=== PATIENT | female | born 1990 | race Caucasian/White ===

== ENCOUNTER 2019-12-02 16:41 | Emergency (ER) | payer BC ==
--- OUTSIDE RECORDS SUMMARY | 2019-12-02 16:52 | XMS REPORT | Continuity of Care Document ---
:1990 External Reference #:[id number] Author Name Dee Galan NP Address [address] [place] [address] Care Team Providers Name Role Phone Agnieszka Olivo M.D. - Family Medicine Care Team Information [place] Unavailable Problems Description No Information Available Social History Type Date Description Comments Sex Unknown Tobacco Use Start: Unknown Nonsmoker Exercise Type/Frequency Exercises sporadically Allergies, Adverse Reactions, Alerts Description No Known Drug Allergies Medications Active Medications SIG Qnty Indications Ordering Date Provider Retin-A Micro Pump Apply thin layer 50gm L70.0 Dee Henriquez 10/03/2019 0.08% to face every [place], RADIO PROGRAM DIRECTOR Gel other day Tizanidine HCL take 1-2 by mouth 30tabs Dee Henriquez 09/18/2019 2mg up to 3 times per Adama [employer]IO PROGRAM DIRECTOR Tablets day as needed for pain and muscle spasm Sulfacetamide Sodium apply to affected Unknown (Acne) areas twice daily 10% Lotion Immunizations CPT Code Status Date Vaccine Lot # [id number] Given 08/23/2019 Tetanus And Diptheria Adult Preservative Free [id number] >[id number] Given 08/23/2019 Influenza Virus Vaccine, Recombinant Dna, [id number] Hemagglutnin Protein On Vital Signs Date Vital Result Comment 10/03/2019 6:05pm BP Systolic 112 mmHg BP Diastolic 78 mmHg Heart Rate 78 /min Body Temperature 97.9 F Respiratory Rate 12 /min Height 67.25 inches 5'7.25" Weight 150.00 lb BMI (Body Mass Index) 23.3 kg/m2 08/28/2019 5:48pm BP Systolic 126 mmHg BP Diastolic 88 mmHg Heart Rate 84 /min Body Temperature 98.2 F Height 67.25 inches 5'7.25" Results Test Date Facility Test Result H/L Range Note Urine (Fma) 08/28/2019 [facility] Medicine SP Grav 1.010 (607)- - Urine, (Fma/CMC/CTX) negative GC/Chlamydia Amplified 08/28/2019 [facility] [place] Chlamydia trachomatis Negative Negative Rna Cindi Neisseria gonorrhoeae (GC) Cindi Negative Negative Laboratory test finding 08/23/2019 [facility] [place] Cytology Thinprep SEE RESULT BELOW 1 w/rfx([facility] [place]) 1 SEE RESULT BELOW Name: DANIELAGEOFFREY S : [address]: Mary Duckworth RADIO PROGRAM DIRECTOR Acct: [id number] Unit: [id number] AGE: 28 Location: [facility] Re08/23/19 SEX: F Status: REG REF SPEC: [id number] HARPREET: 08/23/19-[address] [facility] [address]: Mary Duckworth RADIO PROGRAM DIRECTOR REQ: [id number] RECD: 08/26/19 STATUS: SOUT _ ORDERED: TP IMAGE ANALYS, HPV 16/18 GENE COMMENTS: [id number] FINAL DIAGNOSIS Negative for Intraepithelial lesion or Malignancy SPECIMEN(S) RECEIVED A. Ectocervical/Endocervical CYTOLOGY ADEQUACY Specimen Adequacy: Satisfactory of evaluation Transformation zone component not identified CYTOLOGY PATIENT INFORMATION Patient Information: HPV: Thin Layer Pap Test w/reflex to high risk HPV RNA testing when ASCUS HPV 16/18 Genotype Reflex Actual Specimen Date: 08/26/19 LMP If Unknown: Last Menstrual Period Not Given. Spec Date if unknown: 2017 ?: N Post Menopausal?: N Hysterectomy?: N Previous Abnormal Pap Smears?:N Signed by and Reported on: CYDNEY Ordoñez(ASCP) 2052 This Pap test was evaluated with the assistance of the [employer] Test Imaging System. Due to cytologic findings at the sociology professor microscope, comprehensive manual rescreening by a Gear Straightener may be required. The Pap Smear is a screening test designed to aid in the detection of premalignant and malignant conditions of the uterine cervix. It is not a diagnostic procedure and should not be used as the sole means of detecting cervical cancer. Both false- positive and false- negative reports do occur. Depending on your risk status, a Pap smear should be obtained and evaluated every 1-3 years. END OF REPORT DEPARTMENT OF PATHOLOGY, [address] [place] [address] Mika Mccartney M.D. Director [facility] # [id number] Procedures Date Code Description Status 08/28/2019 62321 Insertion of intrauterine device (IUD) Completed 08/23/2019 37896 Brief Emotional/Behav Assessment W/ Scoring Doc Per Completed Standard Inst Medical Devices Description No Information Available Encounters Type Date Location Provider Dx Diagnosis Office Visit 08/28/2019 Main Office Dee Henriquez Z30.430 Encounter for 6:00p NOLBERTO Galan insertion of intrauterine contraceptive device Z32.02 Encounter for test, result negative Office Visit 08/23/2019 2:30p Main Office Mary Z30.09 Encounter for KATIE Marshall general coun and advice on contraception N94.6 Dysmenorrhea, unspecified F34.1 Dysthymic disorder Z01.419 Encntr for manager parking exam (general) (routine) w/o abn findings Z23 Encounter for immunization Assessments Date Code Description Provider 10/03/2019 L70.0 Acne vulgaris Dee Galan NP 10/03/2019 N76.0 Acute vaginitis Dee Galan NP 10/03/2019 F34.1 Dysthymic disorder Dee Galan NP 08/29/2019 Z30.430 Encounter for insertion of intrauterine Dee Galan NP contraceptive device 08/28/2019 Z30.430 Encounter for insertion of intrauterine Dee Galan , NOLBERTO contraceptive device 08/28/2019 Z32.02 Encounter for test, result Dee Galan NP negative 08/23/2019 Z30.09 Encounter for other general counseling and KATIE Dumont advice on contraception 08/23/2019 N94.6 Dysmenorrhea, unspecified KATIE Dumont 08/23/2019 F34.1 Dysthymic disorder KATIE Dumont 08/23/2019 Z01.419 Encounter for gynecological examination KATIE Dumont (general) (routine) without abnormal findings 08/23/2019 Z23 Encounter for immunization KATIE Dumont Plan of Treatment 10/03/2019 - Dee Galan NPL70.0 Acne vulgarisNew Medication:Retin-A Micro Pump 0.08 % - Apply thin layer to face every other dayComments:Try this; if no better, may want to test your testosterone, TSH, and other hormones.N76.0 Acute vaginitisNew Labs:Nuswab VG, Ordered: 10/03/19Comments:Will treat based on labF34.1 Dysthymic disorderComments:Continue to work on sleep, exercise, diet , and human connection. If symptoms persist despite treating the acne we can consider an antidepressant.AllComments:1. Patient has been queried about patient's goals/preferences and functional/lifestyle goals at relevant visits. If relevant, describe: Has been discussed, noted above2. Treatment goals as explainedto the patient: see above3. Are there barriers to meeting treatment goals? Yes If Yes, please describe: Barriers include possible insurance limits, disease process, and difficulty with lifestyle changes4. Self- Management goals as described to the patient: Yes, see above As always, we strongly encourage a healthy diet and making physical activity a part of your every day life. If you have questions about how or where to start, please contact the office. Functional Status Description No Information Available Mental Status Description No Information Available Referrals Description No Information Available
[2019-12-02] MEDS ORDERED: Ondansetron INJ* 2 MG/ML VIAL IV ONE (17:00)
[2019-12-02] MEDS ORDERED: NS 0.9% 1000 ML** 1,000 ML IV ONE (17:00)
--- NOTE | 2019-12-02 17:04 | ED ---
Complex/Multi-Sys Presentation - HPI Summary HPI Summary: 29 year old female presents with nausea for the past couple days. She states that on Monday she started becoming nauseous. She states that she has been tired and sleeping all weekend. She states that on she started on Lexapro and she also gave donation of blood. She she feels very weak. She admits to some chest tightness and shortness breath. She denies any recent travel. She is on the Mirena. She denies any vomiting or diarrhea. She has not had an appetite. She admits to some dysuria. Denies any flank pain. She admits to headache. No neck stiffness. No sinus congestion. She told the nurse that she is more depressed than normal and she is suicidal. - History Of Current Complaint Chief Complaint: EDGeneral Time Seen by Provider: 12/02/19 16:51 - Allergies/Home Medications Allergies/Adverse Reactions: Allergies Allergy/AdvReac Type Severity Reaction Status Date / Time No Known Allergies Allergy Verified 12/02/19 16:46 Home Medications: Home Medications Sertraline* [Zoloft*] 50 mg PO DAILY 12/02/19 [History Confirmed 12/02/19] Vilazodone (NF) [Viibryd (NF)] 10 mg PO DAILY 12/02/19 [History Confirmed ] PMH/Surg Hx/FS Hx/Imm Hx Endocrine/Hematology History: Denies: Hx Anticoagulant Therapy Respiratory History: Denies: Hx Asthma Infectious Disease History: No Infectious Disease History: Denies: Traveled Outside the [place] in Last 30 Days - Family History Known Family History: Positive: Non-Contributory - Social History Substance Use Type: Reports: None Smoking Status (MU): Never Smoked Tobacco Review of Systems Positive: Fever, Fatigue Positive: Chest Pain Positive: Shortness Of Breath. Negative: Cough Positive: Vomiting, Nausea Positive: Myalgia Positive: Depressed All Other Systems Reviewed And Are Negative: Yes Physical Exam Triage Information Reviewed: Yes Vital Signs On Initial Exam: Initial Vitals Temp Pulse Resp BP Pulse Ox 98.9 F 89 16 132/94 100 12/02/19 16:43 12/02/19 16:43 12/02/19 16:43 12/02/19 16:43 12/02/19 16:43 Vital Signs Reviewed: Yes Appearance: Positive: Well-Appearing Skin: Positive: Warm, Dry Head/Face: Positive: Normal Head/Face Inspection Eyes: Positive: Normal, EOMI, MITRA, Conjunctiva Clear ENT: Positive: Normal ENT inspection, Pharynx normal, TMs normal Respiratory/Lung Sounds: Positive: Clear to Auscultation, Breath Sounds Present Cardiovascular: Positive: Normal, RRR Abdomen Description: Positive: Nontender, Soft. Negative: CVA Tenderness (R), CVA Tenderness (L) Bowel Sounds: Positive: Present Musculoskeletal: Positive: Normal Neurological: Positive: Normal Psychiatric: Positive: Depressed Procedures - Sedation Patient Received Moderate/Deep Sedation with Procedure: No Diagnostics - Vital Signs Vital Signs Temp Pulse Resp BP Pulse Ox 12/02/19 16:43 98.9 F 89 16 132/94 100 - Laboratory Result Diagrams: 12/02/19 17:21 12/02/19 17:20 Lab Statement: Any lab studies that have been ordered have been reviewed, and results considered in the medical decision making process. - Radiology chest Radiology Interpretation Completed By: ED Physician Summary of Radiographic Findings: no active disease - EKG No standard instances Cardiac Rate: NL EKG Rhythm: Sinus Rhythm Summary of EKG Findings: sinus rhythm Re-Evaluation - Re-Evaluation First Eval Re-Evaluation Time: 18:36 Change: Improved Comment: feeling better, less nauseous Complex Multi-Symp Course/Dx Course Of Treatment: 29 year old female presents with nausea for the past couple days. She states that on Monday she started becoming nauseous. She states that she has been tired and sleeping all weekend. She states that on she started on Lexapro and she also gave donation of blood. She she feels very weak. She admits to some chest tightness and shortness breath. She is on the Mirena. She denies any vomiting or diarrhea. She has not had an appetite. She admits to some dysuria. Denies any flank pain. She admits to headache. No neck stiffness. No sinus congestion. She told the nurse that she is more depressed than normal and she is suicidal. On exam pharynx normal. Negative nuchal rigidity. Lungs auscultation. Abdomen soft nontender. wbc normal. hemoglobin 11.7. crp normal. urine no infection. chest xray normal. gave fluids and zofran and feeling better. flu is negative. discussed likely viral syndrome. patient is medical clear for . patient will be signed out pending [facility] to dr Moncada - Diagnoses Differential Diagnoses/HQI/PQRI: Urinary Tract Infection, Other - influenza, pneumonia, depression Provider Diagnoses: Nausea, Viral syndrome, Mood disorder Discharge ED - Sign-Out/Discharge Documenting (check all that apply): Sign-Out Patient Signing out patient TO: John Moncada - Discharge Plan Condition: Stable Referrals: Agnieszka Olivo MD [Primary Care Provider] - - Billing Disposition and Condition Condition: STABLE
[2019-12-02 17:39] LABS: Urine Appearance Clear; Urine Bilirubin Negative (Negative); Urine Blood 3+ (Negative); Urine Color Straw; Urine Glucose Negative (Negative); Urine Ketones Negative (Negative); Urine Nitrite Negative (Negative); Urine Protein Negative (Negative); Urine Specific Gravity 1.004 (1.010-1.030); Urine Urobilinogen Negative (Negative)
[2019-12-02 17:40] LABS: ABS Eosinophils 0.1 10^3/ul (0-0.6); ABS Lymphocytes 2.1 10^3/ul (1.0-4.8); ABS Monocytes 0.6 10^3/ul (0-0.8); ABS Neutrophils 1.9 10^3/ul (1.5-7.7); Eosinophil % 1.6 %; Hematocrit 34 % (35-47); Hemoglobin 11.7 g/dL (12.0-16.0); Lymphocyte % 43.8 %; Mean Corpuscular HGB Conc 34 g/dL (31-36); Mean Corpuscular Hemoglobin 28 pg (27-31); Mean Corpuscular Volume 83 fL (80-97); Mean Platelet Volume 7.8 fL (7.4-10.4); Nucleated Red Blood Cells % 0.1; Platelet Count 276 10^3/uL (150-450); Red Blood Count 4.14 10^6 /uL (3.70-4.87); Red Cell Distribution Width 14 % (10-15); White Blood Count 4.7 10^3/uL (3.5-10.8)
[2019-12-02 17:41] LABS: Urine Bacteria Absent (Absent); Urine Red Blood Cell 1+(3-5/hpf) (Absent); Urine Squamous Epithelial Cell Present (Absent); Urine White Blood Cell Absent (Absent)
[2019-12-02 17:58] LABS: Urine Benzodiazepine Screen None Detected (None Detect); Urine Opiates Screen None Detected (None Detect)
[2019-12-02 17:59] LABS: ALT 19 U/L (7-52); AST 22 U/L (13-39); Albumin 4.7 g/dL (3.2-5.2); Albumin/Globulin Ratio 1.8 (1-3); Alkaline Phosphatase 45 U/L (34-104); Anion Gap 8 mmol/L (2-11); BUN/Creatinine Ratio 11.8 (8-20); Blood Urea Nitrogen 8 mg/dL (6-24); C Reactive Protein < 1.00 mg/L (<8.01); CO2 Carbon Dioxide 25 mmol/L (22-32); Calcium 9.4 mg/dL (8.6-10.3); Chloride 103 mmol/L (101-111); EGFR African American 125.6 (>60); EGFR Non-African American 103.8 (>60); Globulin 2.6 g/dL (2-4); Glucose 89 mg/dL (70-100); Magnesium 2.1 mg/dL (1.9-2.7); Potassium 3.4 mmol/L (3.5-5.0); Sodium 136 mmol/L (135-145); Total Protein 7.3 g/dL (6.4-8.9)
[2019-12-02 18:01] LABS: HCG Pregnancy < 0.60 mIU/mL
[2019-12-02 18:06] LABS: Acetaminophen < 15 mcg/mL; Alcohol < 10 mg/dL (<10); Salicylate < 2.50 mg/dL (<30)
[2019-12-02 18:20] LABS: TSH (Thyroid Stimulating Horm) 2.29 mcIU/mL (0.34-5.60)
[2019-12-02] MEDS ORDERED: Ketorolac INJ* 30 MG/ML 1 ML VIAL IV PUSH ONE (18:43)
[2019-12-02 19:22] LABS: Influenza A Molecular NEGATIVE (Negative); Influenza B Molecular NEGATIVE (Negative)
[2019-12-03] MEDS ORDERED: Ibuprofen TAB* 400 MG PO ONE (00:56)
--- NOTE | 2019-12-03 04:15 | ED ---
Progress - Progress Note Progress Note: Receiving sign-out from DAVID Castillo at shift change 0230 pending [facility]. [facility] discharged the patient with a Dx of depression, per Dr. Andrews, Psychiatry. Re-Evaluation - Re-Evaluation First Eval Re-Evaluation Time: 18:36 Change: Improved Comment: feeling better, less nauseous Course/Dx - Course Course Of Treatment: Receiving sign-out from DAVID Castillo at shift change 0230 pending [facility]. [facility] discharged the patient with a Dx of depression, per Dr. Andrews, Psychiatry. - Diagnoses Provider Diagnoses: Nausea, Viral syndrome, Depression Discharge ED - Sign-Out/Discharge Documenting (check all that apply): Patient Departure - Discharge, per [facility] - Discharge Plan Condition: Stable Disposition: HOME Forms: *Work Release Referrals: Agnieszka Olivo MD [Primary Care Provider] - - Billing Disposition and Condition Condition: STABLE Disposition: Home - Attestation Statements Document Initiated by Liliame: Yes Documenting Scribe: Nathanael Arteaga Provider For Whom Rodney is Documenting (Include Credential): John Moncada MD Scribe Attestation: Nathanael Harris, scribed for John Moncada MD on 12/03/19 at 0556. Scribe Documentation Reviewed: Yes Provider Attestation: The documentation as recorded by the Nathanael lima accurately reflects the service I personally performed and the decisions made by , John Moncada MD Status of Scribe Document: Viewed
[2019-12-03 04:40] VITALS: BP 120/81
== END 2019-12-03 04:30 | disposition home or self-care (01) ==
LOC: ED 16:41
DX: B34.9 Viral infection, unspecified (principal); F39 Unspecified mood [affective] disorder; R11.0 Nausea; F32.9 Major depressive disorder, single episode, unspecified; Z79.899 Other long term (current) drug therapy; R50.9 Fever, unspecified; R53.83 Other fatigue
CPT/HCPCS: 36415; 71046; 80053; 80307; 80320; 80329; 81003; 81015; 83605; 83690; 83735; 84443; 84702; 85025; 86140; 93005; 96361; 96374; 96375; 99285; A9270-GY; G0480; J1885; J2405